=== PATIENT | female | born 1960 | race Caucasian/White ===

== ENCOUNTER 2019-06-14 08:04 | Emergency (ER) | payer SELFPAY ==
[~2019-06-14] VITALS: Ht 157.5 cm; Wt 77.1 kg
[~2019-06-14 08:04] MED LIST: COL100 PO; NORCO1 TA2 PO
[2019-06-14 08:15] VITALS: Ht 157.5 cm; Wt 77.1 kg
[2019-06-14 10:03] LABS: BASOPHIL % 0.6 % (0-2); PLATELET COUNT 215 x10^3mcL (130-400); RED CELL DISTRIBUTION WIDTH 13.7 % (11.5-14.5)
[2019-06-14 10:20] LABS: CALCIUM 9.3 mg/dL (8.5-10.1); CARBON DIOXIDE 32.6 mmol/L (21-32); CHLORIDE SERUM 107 mmol/L (98-107); CREATININE SERUM 0.7 mg/dL (0.6-1.0); GFR1 > 60 mL/min; GLUCOSE SERUM 123 mg/dL (74-106); POTASSIUM SERUM 4.3 mmol/L (3.5-5.1); SODIUM SERUM 145 mmol/L (136-145)
[2019-06-14 10:24] LABS: T3 TOTAL 1.6 ng/mL
[2019-06-14 10:28] LABS: ALBUMIN 3.7 g/dL (3.4-5.0); ALKALINE PHOSPHATASE 82 U/L (46-116); ALT/SGPT 105 U/L (14-59); AST/SGOT 48 U/L (15-37); BILIRUBIN TOTAL 0.7 mg/dL (0.20-1.00); CHOLESTEROL 159 mg/dL (<200); LIPASE 136 IU/L (73-393); TOTAL PROTEIN, SERUM 6.8 g/dL (6.4-8.2); TRIGLYCERIDES 191 mg/dL (<150)
[2019-06-14 10:34] LABS: CHOLESTEROL/HDL RATIO 5.3; HDL CHOLESTEROL 30 mg/dL (40-60)
[2019-06-14 10:36] LABS: FREE T4 1.31 ng/dL (0.76-1.46); FREE THYROXINE INDEX 3.9 ug/dL (1.4-4.5); T4(THYROXINE) 11.9 ug/dL (4.7-13.3)
[2019-06-14 11:58] VITALS: BP 132/83
== END 2019-06-14 11:58 | disposition home or self-care (01) ==
LOC: ED 08:04
PROVIDERS: Specialist
DX: R00.2 Palpitations (principal); R60.9 Edema, unspecified; Z90.49 Acquired absence of other specified parts of digestive tract
CPT/HCPCS: 36415; 83880; 84439; Q0092